=== PATIENT | male | born 1980 | race Caucasian/White ===

== ENCOUNTER 2017-03-13 21:37 | Emergency (ER) | payer SELFPAY ==
[~2017-03-13] VITALS: Ht 172.7 cm; Wt 67.0 kg
[2017-03-13 22:06] LABS: MCH 32.3 PG (29.0-34.0); MCHC 34.3 G/DL (30.0-36.0); MCV 94.2 FL (86-99); MEAN PLAT.VOLUME 9.5 uM^3 (9.0-12.4); PLATELET COUNT 240 K/uL (156-360); RBC DIS.WIDTH-CV 13.4 % (11.8-14.6); RBC DIS.WIDTH-SD 46.8 % (39-53); WHITE BLOOD COUNT 12.8 K/uL (4.1-10.2)
[2017-03-13 22:13] LABS: CHLORIDE 102 mEq/L (99-109); POTASSIUM 3.8 mEq/L (3.7-5.4); SODIUM 138 mEq/L (136-147)
[2017-03-13 22:15] LABS: GLUCOSE 115 mg/dL (70-99)
[2017-03-13 22:17] LABS: ANION GAP 11 MEQ/L (2-14); TOTAL BILIRUBIN 0.5 mg/dL (0.0-1.0)
[2017-03-13 22:19] LABS: ALKALINE PHOSPHATASE 68 IU/L (3-129); GFR ESTIMATE (CALCULATED) > 59 mL/min/
[2017-03-13 22:20] LABS: UREA NITROGEN (BUN) 13 mg/dL (9-23)
[2017-03-13 22:23] LABS: LIPASE 140 U/L (1.0-51.0)
[2017-03-13 22:35] LABS: ADD MIUA? YES; BILIRUBIN NEGATIVE; BLOOD NEGATIVE; COLOR YELLOW ((YELLOW)); GLUCOSE (STRIP) NEGATIVE; KETONES 5; LEUKOCYTES NEGATIVE; NITRITE NEGATIVE; PROTEIN (STRIP) 30; SPECIFIC GRAVITY 1.019 (1.000-1.030); UROBILINOGEN 0.2 MG/DL (0.2-1.0)
[2017-03-13 22:50] LABS: AMORPHOUS PHOSPHATE CRYSTALS 3+; BACTERIA 1+ /HPF; CASTS NONE SEEN /LPF; CRYSTALS PRESENT; EPITHELIAL CELLS NONE SEEN /HPF; MUCUS RARE /LPF; RED BLOOD CELLS NONE SEEN /HPF (0-5); UCUL ADDED? NO; WHITE BLOOD CELLS NONE SEEN /HPF (0-5)
[2017-03-14] MEDS ORDERED: PROMETHAZINE HC25 M1 PO (00:33)
[2017-03-14] MEDS ORDERED: NORCO 7.5/321 TABLET PO (00:33)
[2017-03-14] MEDS ORDERED: KEFLEX500 MG PO (00:33)
[2017-03-14 00:49] VITALS: BP 143/96
== END 2017-03-14 00:51 | disposition home or self-care (01) ==
LOC: EME 21:37 → RME 21:37
DX: K85.90 Acute pancreatitis without necrosis or infection, unspecified (principal); N39.0 Urinary tract infection, site not specified; R03.0 Elevated blood-pressure reading, without diagnosis of hypertension; F17.200 Nicotine dependence, unspecified, uncomplicated
CPT/HCPCS: 74177; 80053; 81003; 83690; 85027; 87086; 87491; 87591; 99281; 99285; J0696; J1885; J2405; J3010; J7030; J7050